=== PATIENT | male | born 1955 | race Caucasian/White ===

== ENCOUNTER 2025-02-16 09:42 | Day surgery (SDC) | payer OTHER ==
[~2025-02-16] VITALS: Ht 170.2 cm; Wt 87.0 kg
[2025-02-16] VITALS (10 sets, daily range): BP systolic 109–155; BP diastolic 69–102
[~2025-02-16 09:42] MED LIST: ALLO300 PO; HYDACE5 PO; HYDCHL25 PO; NIFE30ER PO; PANT40 PO
[2025-02-16] MEDS ORDERED: CeFAZolin Sodium 2,000 MG in NS 100 ML IV SCH (10:05)
--- NOTE | 2025-02-16 10:47 | NUR ---
History, Chart, Medications and Allergies reviewed before start of procedure.Lungs clear T/O to Auscultation.PT HAS LOW POTASSIM. PER ANESTHESIA POTASIUM DRAW SENT TO LAB
[2025-02-16] MEDS ORDERED: CeFAZolin Sodium 2,000 MG VIAL ONE (10:48)
[2025-02-16] MEDS ORDERED: Bupivacaine 0.5% HCl 5 MG/ML 30MLVIAL ONE (10:53)
[2025-02-16] MEDS ORDERED: FentaNYL Citrate 50 MCG/ML 2 ML Injection ONE ×2 (11:13→13:38)
--- NOTE | 2025-02-16 11:13 | NUR ---
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 VANESSA TO TAKE CARE OF PT HEARING AIDS BACK IN THE OR.
[2025-02-16] MEDS ORDERED: Rocuronium Bromide 10 MG/ML 5ML Injection IV ONE ×2 (11:17→11:46)
[2025-02-16] MEDS ORDERED: Dexamethasone Sod Phos 10 MG/ML 1ML VIAL ONE (11:22)
[2025-02-16] MEDS ORDERED: Phenylephrine HCl 100 MCG/ML-NS 10MLSYR (1MG/10ML) ONE (11:25)
[2025-02-16] MEDS ORDERED: Potassium Chl 20MEQ/Water100ML 100 ML IV ONE (11:25)
[2025-02-16] MEDS ORDERED: Ondansetron HCl 2 MG / ML 2ML Vial IV PRN (11:40)
[2025-02-16] MEDS ORDERED: FentaNYL Citrate 50 MCG/ML 2 ML Injection IV PRN (11:40)
[2025-02-16] MEDS ORDERED: HYDROmorphone HCl/Pf 1MG SYR IV PRN (11:40)
[2025-02-16] MEDS ORDERED: HYDROmorphone HCl/Pf 1MG SYR ONE ×2 (11:47→13:38)
[2025-02-16] MEDS ORDERED: Sugammadex Sodium 200 MG/2ML SDV (100 MG/ML) ONE (13:21)
[2025-02-16] MEDS ORDERED: OxyCODONE 5 mg/Acetamin 325 mg TABLET PO PRN (14:00)
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
== END 2025-02-16 23:00 | disposition home or self-care (01) ==
LOC: ORSCMMR 09:42 → ORD 11:30 → ORSCMMR 11:30
DX: K40.30 Unilateral inguinal hernia, with obstruction, without gangrene, not specified as recurrent (principal); K41.00 Bilateral femoral hernia, with obstruction, without gangrene, not specified as recurrent; K66.0 Peritoneal adhesions (postprocedural) (postinfection); I10 Essential (primary) hypertension; K21.9 Gastro-esophageal reflux disease without esophagitis; Z79.899 Other long term (current) drug therapy
CPT/HCPCS: 84132; A9270; C1781; J0690; J1100; J1171; J2371; J2405; J2704; J3010; J3480; J7120